=== PATIENT | male | born 1960 | race Caucasian/White ===

== ENCOUNTER 2019-01-04 09:24 | Day surgery (SDC) | payer BC ==
[~2019-01-04] VITALS: Ht 188 cm; Wt 95.7 kg
[2019-01-04] MEDS ORDERED: GLUCOSAMIN 500 (09:57)
[2019-01-04] MEDS ORDERED: VTAMINC250TA (09:58)
[2019-01-04] MEDS ORDERED: MOTRIN 200200 MG/TAB PO (09:58)
[2019-01-04 09:59] VITALS: BP 154/89; PULSE 114; TEMP 97.5
[2019-01-04 13:10] VITALS: BP 137/94; PULSE 64; TEMP 97.6
--- NOTE | 2019-01-04 13:10 | NUR ---
RETURNS FROM PACU VIA CART TO BAY 1. ALERT AND ORIENTED. DENIES PAIN AT THIS TIME. FRIEND AT BEDSIDE. REQUESTS MUFFIN AND JUICE. POST OP VS STARTED. CALL LIGHT WITHIN REACH. WILL CONTINUE TO MONITOR.
[2019-01-04 13:25] VITALS: BP 136/91; PULSE 77
[2019-01-04 13:40] VITALS: BP 134/79; PULSE 68
[2019-01-04 14:10] VITALS: BP 138/90; PULSE 80; TEMP 98
--- NOTE | 2019-01-04 14:10 | NUR ---
DISCHARGE INSTRUCTIONS GIVEN TO PATIENT AND . VERBALIZED UNDERSTANDING. AMBULATED WITH STEADY GAIT TO PERSONAL VEHICHLE WITH .
--- NOTE | 2019-01-04 15:35 | NUR ---
AMBULATED TO BATHROOM WITH SEADY GAIT
== END 2019-01-04 14:10 | disposition home or self-care (01) ==
LOC: SDCO 09:24
DX: K40.90 Unilateral inguinal hernia, without obstruction or gangrene, not specified as recurrent (principal); Z88.0 Allergy status to penicillin; G89.29 Other chronic pain; M54.5 Low back pain
CPT/HCPCS: C1781; J0690; J1100; J2405; J2704; J3010; J7120